=== PATIENT | male | born 1980 | race Caucasian/White ===

== ENCOUNTER 2018-10-10 09:52 | Outpatient (CLI) | payer BC, SELFPAY ==
--- NOTE | 2018-10-10 10:04 | DI.RAD_ITS ---
SYMPTOM/DIAGNOSIS: COUGH, R05 PA AND LATERAL CHEST: No priors. The heart is normal in size. The lungs are clear. The mediastinal structures and pleura appear intact. CONCLUSION: Normal chest.
== END 2018-10-10 10:12 ==
PROVIDERS: PCP Internal Medicine; Visit Provider Nurse Practitioner Family
DX: R05 Cough (principal)
CPT/HCPCS: 71046

== ENCOUNTER 2018-11-18 14:28 | Outpatient (CLI) | payer BC, SELFPAY ==
--- NOTE | 2018-11-18 | PFT_ITS ---
PULMONARY FUNCTION TEST REPORT Patient identification - Yusuf Copeland DATE OF - 80 DATE OF SERVICE - 11/18/18 REQUESTING PROVIDER - Antonio Verma M.D. INTERPRETATION OF STUDY Spirometry shows mild obstructive airways disease with no significant bronchodilator response. LUNG VOLUMES - Lung volumes showed no evidence of restriction. DIFFUSION CAPACITY- Elevated. AIRWAY RESISTANCE - Normal. IMPRESSION Mild obstructive airways disease with no significant bronchodilator response. This is associated with high diffusion capacity. This constellation of findings can certainly be seen in asthma. Clinical correlation recommended. Zhanna Bethea M.D. LEYDA/rossana T - 11/19/2018
== END 2018-11-18 14:48 ==
PROVIDERS: PCP Internal Medicine; Visit Provider Internal Medicine
DX: J45.909 Unspecified asthma, uncomplicated (principal)
CPT/HCPCS: 94060; 94150; 94726; 94729

== ENCOUNTER 2019-03-17 16:38 | Outpatient (CLI) | payer BC, SELFPAY ==
--- NOTE | 2019-03-17 09:27 | DI.RAD_ITS ---
SYMPTOM/DIAGNOSIS: RT HAND PAIN, M79.641 RIGHT HAND: No bony or joint abnormality is seen.
== END 2019-03-17 16:58 ==
PROVIDERS: PCP Internal Medicine; Visit Provider Physician Assistant Medical
DX: M79.641 Pain in right hand (principal)
CPT/HCPCS: 73130

== ENCOUNTER 2020-04-14 10:05 | Outpatient (REF) | payer BC, SELFPAY ==
[2020-04-14 19:10] LABS: Absolute Basophil Count 0.03 k/cumm (0.0-0.2); Absolute Lymphocyte Count 1.87 k/cumm (1.2-3.4); Absolute Monocyte Count 0.45 k/cumm (0.11-0.7); Absolute Neutrophil Count 1.03 k/cumm (1.2-6.7); Basophils % 0.9; Eosinophils % 2.9; HCT 42.7 % (40.0-50.0); Lymphocytes % 53.7; Mean Corp. HGB Concentration 37.5 g/dL (32.0-36.0); Mean Corpuscular Hemoglobin 33.5 pg (27.0-33.0); Mean Corpuscular Volume 89.3 fL (80-95); Mean Platelet Volume 11.8 fL (8.0-11.0); Monocytes % 12.9; Neutrophils % 29.6; Platelet Count 272 x1000/uL (130-400); RBC 4.78 m/cumm (4.50-6.00); RBC Distribution Width 12.8 % (11.8-14.1); White Blood Cell Count 3.48 k/cumm (4.4-10.8)
[2020-04-14 19:14] LABS: Albumin 2.9 g/dL (3.4-5.0); Anion Gap 7.9 mmol/L (3-11); Bilirubin, Total 1.4 mg/dL (0.2-1.0); CO2 27.1 mmol/L (21.0-32.0); Chloride 94 mmol/L (98-107); Glucose 199 mg/dL (74-106); Potassium 4.5 mmol/L (3.5-5.1); Sodium 129 mmol/L (136-145); TSH (W/Ref FT4) 2.06 uIU/mL (0.36-3.74)
[2020-04-14 19:47] LABS: Diff Comment RBC Morph Reviewed; RBC Morphology Normal
[2020-04-14 20:55] LABS: BUN 13 mg/dL (7-18); CREATININE 0.78 mg/dL (0.70-1.30); LDL CHOLESTEROL 166 mg/dL (<100)
[2020-04-14 21:28] LABS: Lipase 180 U/L (73-393)
[2020-04-14 22:12] LABS: ALT 201 U/L (16-63); AST 226 U/L (15-37); Alkaline Phosphatase 108 U/L (46-116); Amylase 48 U/L (25-115); Total Protein 7.3 g/dL (6.4-8.2)
[2020-04-14 22:17] LABS: Calcium 8.8 mg/dL (8.5-10.1)
== END 2020-04-14 10:25 ==
LOC: NCHCN 10:05
PROVIDERS: PCP Internal Medicine; Visit Provider Physician Assistant
DX: R10.816 Epigastric abdominal tenderness (principal); G43.A0 Cyclical vomiting, in migraine, not intractable
CPT/HCPCS: 80053; 83690; 83721; 82150; 84443; 85025

== ENCOUNTER 2020-04-19 11:42 | Outpatient (REF) | payer BC, SELFPAY ==
[2020-04-19 19:51] LABS: Iron 149 ug/dL (65-175)
[2020-04-19 20:29] LABS: Ferritin > 2000 ng/mL (26-388)
[2020-04-19 21:14] LABS: HDL Cholesterol 43 mg/dL (40-60)
[2020-04-19 21:17] LABS: Cholesterol 704 mg/dL (<200); Triglyceride 4737 mg/dL (<150)
[2020-04-19 21:32] LABS: LDL CHOLESTEROL 197 mg/dL (<100)
[2020-04-19 21:46] LABS: Total Iron Binding Capacity 134 ug/dL (250-450); Transferrin Sat 111 % (20-55)
[2020-04-20 16:52] LABS: INR 1.2 Ratio (0.9-1.1)
[2020-04-21 09:07] LABS: Hepatitis B Surface Ag Negative (Negative)
[2020-04-21 09:56] LABS: Hep A Total Ab w Rflx IgM Positive (Negative)
[2020-04-21 10:00] LABS: Hepatitis C Ab w Rflx HCV PCR Negative (Negative)
[2020-04-21 12:37] LABS: ANA Interpretation Positive (Negative); ANA Titer Pattern 1:80 Speckled
[2020-04-22 15:10] LABS: Hep A Antibody IgM Negative (Negative)
== END 2020-04-19 12:02 ==
LOC: NCHCN 11:42
PROVIDERS: PCP Internal Medicine; Visit Provider Internal Medicine
DX: R10.816 Epigastric abdominal tenderness (principal); R74.8 Abnormal levels of other serum enzymes; Z11.59 Encounter for screening for other viral diseases
CPT/HCPCS: 80061; 83516; 83721; 85610; 86709; 86803; 87340; 82728; 83540; 83550; 86038

== ENCOUNTER 2020-05-11 09:09 | Outpatient (REF) | payer BC, SELFPAY ==
[2020-05-11 22:37] LABS: HGB 12.5 g/dL (13.5-17.5)
[2020-05-11 22:54] LABS: Total Iron Binding Capacity 339 ug/dL (250-450)
[2020-05-11 23:12] LABS: ALT 44 U/L (16-63); AST 35 U/L (15-37); Alkaline Phosphatase 52 U/L (46-116); Bilirubin, Total 0.5 mg/dL (0.2-1.0); Calculated LDL 183 mg/dL (<100); Cholesterol 243 mg/dL (<200); Ferritin 730 ng/mL (26-388); HDL Cholesterol 44 mg/dL (40-60); Total Protein 7.1 g/dL (6.4-8.2); Triglyceride 83 mg/dL (<150)
[2020-05-11 23:40] LABS: Bilirubin, Direct 0.17 mg/dL (0.00-0.20); Creatine Kinase 232 U/L (39-308); Lipase 171 U/L (73-393)
[2020-05-12 10:56] LABS: Iron 49 ug/dL (65-175)
[2020-05-12 15:54] LABS: C-Reactive Protein 0.07 mg/dL (0.0-0.3)
== END 2020-05-11 09:29 ==
LOC: NCHCN 09:09
PROVIDERS: PCP Internal Medicine; Visit Provider Internal Medicine
DX: E83.119 Hemochromatosis, unspecified (principal); Z87.19 Personal history of other diseases of the digestive system; M54.5 Low back pain; E78.5 Hyperlipidemia, unspecified
CPT/HCPCS: 80061; 80076; 82550; 83690; 82728; 83540; 83550; 85018; 86140

== ENCOUNTER 2020-09-29 11:01 | Outpatient (REF) | payer BC, SELFPAY ==
[2020-09-29 20:13] LABS: ALT 33 U/L (16-63); AST 49 U/L (15-37); Albumin 3.9 g/dL (3.4-5.0); Alkaline Phosphatase 89 U/L (46-116); Bilirubin, Total 2.1 mg/dL (0.2-1.0); Calculated LDL 92 mg/dL (<100); Cholesterol 196 mg/dL (<200); Ferritin 906 ng/mL (26-388); HDL Cholesterol 68 mg/dL (40-60); Total Protein 7.4 g/dL (6.4-8.2); Triglyceride 184 mg/dL (<150)
[2020-09-29 20:49] LABS: Bilirubin, Direct 0.41 mg/dL (0.00-0.20)
== END 2020-09-29 11:21 ==
LOC: NCHCN 11:01
PROVIDERS: PCP Internal Medicine; Visit Provider Internal Medicine
DX: E78.5 Hyperlipidemia, unspecified (principal); R78.89 Finding of other specified substances, not normally found in blood
CPT/HCPCS: 80061; 80076; 82728

== ENCOUNTER 2021-02-13 08:52 | Outpatient (REF) | payer BC, SELFPAY ==
[2021-02-13 16:54] LABS: ALT 39 U/L (16-63); AST 34 U/L (15-37); Albumin 4.1 g/dL (3.4-5.0); Alkaline Phosphatase 101 U/L (46-116); Bilirubin, Total 0.5 mg/dL (0.2-1.0); Ferritin 340 ng/mL (26-388); Total Protein 7.5 g/dL (6.4-8.2)
[2021-02-13 17:04] LABS: Bilirubin, Direct 0.1 mg/dL (0.0-0.2); Lipase 174 U/L (73-393)
== END 2021-02-13 08:53 | disposition home or self-care (01) ==
LOC: NCHCN 08:52
PROVIDERS: PCP Internal Medicine; Visit Provider Internal Medicine
DX: R03.0 Elevated blood-pressure reading, without diagnosis of hypertension (principal); Z87.19 Personal history of other diseases of the digestive system; R78.89 Finding of other specified substances, not normally found in blood
CPT/HCPCS: 80076; 83690; 82728

== ENCOUNTER 2021-07-27 15:44 | Outpatient (REF) | payer BC, SELFPAY ==
[2021-07-27 19:01] LABS: Iron 51 ug/dL (65-175); Total Iron Binding Capacity 295 ug/dL (250-450); Transferrin Sat 17 % (20-55)
[2021-07-27 19:14] LABS: ALT 50 U/L (16-63); AST 58 U/L (15-37); Albumin 4.1 g/dL (3.4-5.0); Alkaline Phosphatase 77 U/L (46-116); Bilirubin, Total 0.5 mg/dL (0.2-1.0); Calculated LDL 155 mg/dL (<100); Cholesterol 219 mg/dL (<200); Ferritin 304 ng/mL (26-388); HDL Cholesterol 55 mg/dL (40-60); Total Protein 7.1 g/dL (6.4-8.2); Triglyceride 46 mg/dL (<150)
[2021-07-27 19:23] LABS: Bilirubin, Direct 0.1 mg/dL (0.0-0.2)
== END 2021-07-27 15:45 | disposition home or self-care (01) ==
LOC: NCHCN 15:44
PROVIDERS: PCP Internal Medicine; Visit Provider Internal Medicine
DX: R78.89 Finding of other specified substances, not normally found in blood (principal); E78.5 Hyperlipidemia, unspecified; R03.0 Elevated blood-pressure reading, without diagnosis of hypertension
CPT/HCPCS: 80061; 80076; 82728; 83540; 83550

== ENCOUNTER 2021-12-14 18:08 | Outpatient (REF) | payer BC, SELFPAY ==
[2021-12-14 19:55] LABS: ALT 85 U/L (16-63); Cholesterol 364 mg/dL (<200); TSH 2.15 uIU/mL (0.36-3.74); Triglyceride 99 mg/dL (<150)
[2021-12-14 19:57] LABS: Calculated LDL 131 mg/dL (<100); HDL Cholesterol 214 mg/dL (40-60)
== END 2021-12-14 18:09 | disposition home or self-care (01) ==
LOC: NCHCN 18:08
PROVIDERS: PCP Internal Medicine; Visit Provider Internal Medicine
DX: E78.5 Hyperlipidemia, unspecified (principal); R03.0 Elevated blood-pressure reading, without diagnosis of hypertension
CPT/HCPCS: 80061; 84443; 84460

== ENCOUNTER 2022-04-26 16:34 | Outpatient (REF) | payer BC, SELFPAY ==
[2022-04-26 19:33] LABS: ALT 33 U/L (16-63); AST 27 U/L (15-37); Albumin 4.4 g/dL (3.4-5.0); Alkaline Phosphatase 86 U/L (46-116); Bilirubin, Direct 0.2 mg/dL (0.0-0.2); Bilirubin, Total 0.7 mg/dL (0.2-1.0); Calculated LDL 185 mg/dL (<100); Cholesterol 253 mg/dL (<200); HDL Cholesterol 49 mg/dL (40-60); Total Protein 7.6 g/dL (6.4-8.2); Triglyceride 97 mg/dL (<150)
[2022-04-26 19:45] LABS: Uric Acid 8.5 mg/dL (3.5-7.2)
== END 2022-04-26 16:35 | disposition home or self-care (01) ==
LOC: NCHCN 16:34
PROVIDERS: PCP Internal Medicine; Visit Provider Internal Medicine
DX: I10 Essential (primary) hypertension (principal); F10.20 Alcohol dependence, uncomplicated
CPT/HCPCS: 80061; 80076; 84550; 86140

== ENCOUNTER 2022-07-27 18:41 | Outpatient (REF) | payer BC, SELFPAY ==
[2022-07-27 19:46] LABS: ALT 30 U/L (16-63); AST 25 U/L (15-37); Albumin 4.2 g/dL (3.4-5.0); Alkaline Phosphatase 67 U/L (46-116); Anion Gap 7.4 mmol/L (3-11); BUN 17 mg/dL (7-18); Bilirubin, Total 0.9 mg/dL (0.2-1.0); CO2 30.6 mmol/L (21.0-32.0); CREATININE 0.8 mg/dL (0.70-1.30); Calcium 8.8 mg/dL (8.5-10.1); Chloride 104 mmol/L (98-107); Ferritin 252 ng/mL (26-388); Glucose 101 mg/dL (74-106); LDL CHOLESTEROL 181 mg/dL (<100); Potassium 4.7 mmol/L (3.5-5.1); Sodium 142 mmol/L (136-145); Total Protein 7.9 g/dL (6.4-8.2)
== END 2022-07-27 18:42 | disposition home or self-care (01) ==
LOC: NCHCN 18:41
PROVIDERS: PCP Internal Medicine; Visit Provider Internal Medicine
DX: E78.5 Hyperlipidemia, unspecified (principal); G25.81 Restless legs syndrome
CPT/HCPCS: 80053; 83721; 82728

== ENCOUNTER 2025-04-30 14:41 | Outpatient (REF) | payer BC, SELFPAY ==
[2025-04-30 19:23] LABS: HCT 48.1 % (40.0-50.0); HGB 16.4 g/dL (13.5-17.5); MCH 29.4 pg (27.0-33.0); MCHC 34.1 % (32.0-36.0); MCV 86 fL (80-95); Platelet Count 264 10^3/uL (130-400); RBC 5.58 10^6/uL (4.36-5.78); RDW 12.3 % (11.8-14.1); RDW-SD 38.5 fL
[2025-04-30 19:41] LABS: ALT 25 U/L (16-63); AST 24 U/L (15-37); Albumin 4.3 g/dL (3.4-5.0); Alkaline Phosphatase 88 U/L (46-116); Anion Gap 5.7 mmol/L (3-11); BUN 18 mg/dL (7-18); Bilirubin, Total 0.8 mg/dL (0.2-1.0); CO2 31.3 mmol/L (21.0-32.0); CREATININE 0.8 mg/dL (0.70-1.30); Calcium 9.5 mg/dL (8.5-10.1); Calculated LDL 179 mg/dL (<100); Chloride 104 mmol/L (98-107); Cholesterol 250 mg/dL (<200); Estimated GFR 111.92 (mL/min/1.73m2); Glucose 90 mg/dL (74-106); HDL Cholesterol 56 mg/dL (>or=40); Potassium 4.2 mmol/L (3.5-5.1); Sodium 141 mmol/L (136-145); Total Protein 7.9 g/dL (6.4-8.2); Triglyceride 77 mg/dL (<150)
== END 2025-04-30 14:42 | disposition home or self-care (01) ==
LOC: NCHCN 14:41
PROVIDERS: PCP Internal Medicine; Visit Provider Internal Medicine
DX: R10.32 Left lower quadrant pain (principal); E78.5 Hyperlipidemia, unspecified
CPT/HCPCS: 80053; 80061; 85027